=== PATIENT | male | born 2000 | race Two or more races ===

== ENCOUNTER 2023-07-21 13:19 | Inpatient (IN) | payer OTHER ==
[~2023-07-21] VITALS: Ht 152.4 cm; Wt 47.6 kg
[2023-07-21] MEDS ORDERED: XARELTO10 MG PO (14:18)
[2023-07-21] MEDS ORDERED: IRON236 MG PO (14:18)
[2023-07-21] MEDS ORDERED: FOLIC ACID20 MG PO (14:18)
[2023-07-21 18:26] LABS: HEMOGLOBIN 10.5 g/dL (13-16.00); MEAN CELL VOLUME 87.9 fL (80.0-100.00); MEAN CORPUSCULAR HEMOGLOBIN 31.8 pg (27.00-32.0); MEAN CORPUSCULAR HGB CONC 36.2 g/dl (32.0-36.0); PLATELET COUNT 448 K/uL (150-450); RED CELL DISTRIBUTION WIDTH 15.9 % (11.5-14.5)
[2023-07-21 18:46] LABS: ALBUMIN 2.6 gm/dL (3.4-5.0); BILIRUBIN TOTAL 0.34 mg/dL (0.3-1.2); CALCIUM 8.7 mg/dL (8.5-10.1); CREATININE SERUM 0.31 mg/dL (0.70-1.30); GFR 360.99; POTASSIUM 4.29 mEq/L (3.5-5.1); TOTAL PROTEIN 6.6 gm/dL (6.4-8.2)
[2023-07-21 21:47] LABS: URINE APPEARANCE Turbid; URINE BILIRRUBIN Negative (NEGATIVE); URINE BLOOD Small; URINE COLOR Dark Yellow; URINE GLUCOSE Negative (NEGATIVE); URINE LEUKOCYTE Large; URINE NITRATE Positive
[2023-07-21 21:51] LABS: URINE EPITHELIAL CELLS 21.7 uL (0.0-38.8); URINE RBC 34.9 uL (0.0-20.8)
[2023-07-21 22:05] LABS: URINE BACTERIA > 9821.5 uL (0.0-1933); URINE PROTEIN 100 (NEGATIVE); URINE WBC > 5548.3 uL (0.0-23.2)
[2023-07-22 02:05] LABS: INR 1.04; PARTIAL THROMBOPLASTIN TIME 30.2 SECONDS (22.0-34.0); PROTHROMBIN TIME 10.9 SECONDS (9.0-11.5)
[2023-07-22 09:43] LABS: CALCIUM 7.9 mg/dL (8.5-10.1); POTASSIUM 4.48 mEq/L (3.5-5.1)
[2023-07-22 09:44] LABS: PROCALCITONIN 0.09 ng/ml (0.020-0.080)
[2023-07-22 10:21] LABS: CREATININE SERUM 0.18 mg/dL (0.70-1.30); GFR 676.01
[2023-07-22 10:42] LABS: CORTISOL 14.88 ug/dl
[2023-07-22 15:41] LABS: POTASSIUM 4.28 mEq/L (3.5-5.1)
[2023-07-22 15:49] LABS: GFR 774.39
[2023-07-22 16:37] LABS: CREATININE SERUM 0.16 mg/dL (0.70-1.30)
[2023-07-23 08:31] LABS: PHOSPHOROUS 5.4 mg/dL (2.5-4.9)
[2023-07-23 08:32] LABS: ALBUMIN 1.9 gm/dL (3.4-5.0); PHOSPHOROUS 5.4 mg/dL (2.5-4.9); POTASSIUM 3.92 mEq/L (3.5-5.1)
[2023-07-23 08:38] LABS: GFR 834.27
[2023-07-23 08:39] LABS: CREATININE SERUM 0.15 mg/dL (0.70-1.30)
[2023-07-24 08:23] LABS: ALBUMIN 2.1 gm/dL (3.4-5.0); BILIRUBIN TOTAL 0.26 mg/dL (0.3-1.2); CALCIUM 8.3 mg/dL (8.5-10.1); CREATININE SERUM 0.19 mg/dL (0.70-1.30); GFR 635.11; GLOBULINA 3.4 G/DL (2.4-3.5); POTASSIUM 3.74 mEq/L (3.5-5.1); TOTAL PROTEIN 5.5 gm/dL (6.4-8.2)
[2023-07-25 06:14] LABS: HEMATOCRIT 24.3 % (39.0-48.0); MEAN CELL VOLUME 91.2 fL (80.0-100.00); MEAN CORPUSCULAR HEMOGLOBIN 33.3 pg (27.00-32.0); MEAN CORPUSCULAR HGB CONC 36.5 g/dl (32.0-36.0); PLATELET COUNT 415 K/uL (150-450); RED BLOOD COUNT 2.67 M/uL (4.00-6.00)
[2023-07-25 06:18] LABS: HEMOGLOBIN 8.9 g/dL (13-16.00)
[2023-07-25 06:32] LABS: INR 1.08; PARTIAL THROMBOPLASTIN TIME 28.4 SECONDS (22.0-34.0); PROTHROMBIN TIME 11.3 SECONDS (9.0-11.5)
[2023-07-25 07:03] LABS: ALBUMIN 2.2 gm/dL (3.4-5.0); ALKALINE PHOSPHATASE 65 U/L (50-136); ALT/SGPT 26 U/L (12-78); ANION GAP 12 (10.0-20.0); AST/SGOT 20 U/L (15-37); BILIRUBIN TOTAL 0.35 mg/dL (0.3-1.2); BILIRUBIN,CONJUGATED < 0.10 mg/dL (0.0-0.2); BILIRUBIN,UNCONJUGATED 0.25 mg/dL (0.0-0.6); BLOOD UREA NITROGEN 13 mg/dL (7-18); BUN CREA RATIO 52 (7.0-25.0); CALCIUM 8.6 mg/dL (8.5-10.1); CARBON DIOXIDE 25 mEq/L (21-32); CHLORIDE 101 mmol/L (98-107); CHOL HDL RATIO 3.4 (0-5.0); CHOLESTEROL 120 mg/dL (0-200); GLOBULINA 3.6 G/DL (2.4-3.5); GLUCOSE FASTING 82 mg/dL (65-100); HDL 35 mg/dl (40-60); LDL 61 mg/dl (0-130); OSMOLALITY SERUM 267 MOSM/KG (275-295); PHOSPHOROUS 4.8 mg/dL (2.5-4.9); POTASSIUM 4.26 mEq/L (3.5-5.1); SODIUM 134 mmol/L (136-145); TOTAL PROTEIN 5.8 gm/dL (6.4-8.2); TRIGLYCERIDES 118 mg/dL (0-150); VLDL 23 (0-39)
[2023-07-25 07:15] LABS: CREATININE SERUM 0.25 mg/dL (0.70-1.30)
[2023-07-25 10:05] LABS: UREA CLEARANCE 30.8 ML/MIN
[2023-07-29 07:06] LABS: ALBUMIN 2.7 gm/dL (3.4-5.0); BILIRUBIN TOTAL 0.43 mg/dL (0.3-1.2); CALCIUM 9.1 mg/dL (8.5-10.1); GLOBULINA 3.9 G/DL (2.4-3.5); POTASSIUM 4.85 mEq/L (3.5-5.1); TOTAL PROTEIN 6.6 gm/dL (6.4-8.2)
[2023-07-29 07:38] LABS: CREATININE SERUM 0.21 mg/dL (0.70-1.30); GFR 565.81
[2023-07-30 08:41] LABS: ALBUMIN 2.6 gm/dL (3.4-5.0); BILIRUBIN TOTAL 0.5 mg/dL (0.3-1.2); CALCIUM 8.9 mg/dL (8.5-10.1); POTASSIUM 4.17 mEq/L (3.5-5.1); TOTAL PROTEIN 6.6 gm/dL (6.4-8.2)
[2023-07-30 12:44] LABS: GFR 635.11
[2023-07-30 12:55] LABS: CREATININE SERUM 0.19 mg/dL (0.70-1.30)
[2023-07-31 07:25] LABS: CALCIUM 8.4 mg/dL (8.5-10.1); POTASSIUM 4.81 mEq/L (3.5-5.1)
[2023-07-31 07:39] LABS: HEMATOCRIT 24.4 % (39.0-48.0); MEAN CELL VOLUME 91.4 fL (80.0-100.00); MEAN CORPUSCULAR HGB CONC 35.8 g/dl (32.0-36.0); PLATELET COUNT 355 K/uL (150-450); RED BLOOD COUNT 2.67 M/uL (4.00-6.00); RED CELL DISTRIBUTION WIDTH 16.7 % (11.5-14.5)
[2023-07-31 07:54] LABS: HEMOGLOBIN 8.7 g/dL (13-16.00); MEAN CORPUSCULAR HEMOGLOBIN 32.5 pg (27.00-32.0)
[2023-07-31 08:45] LABS: CREATININE SERUM 0.23 mg/dL (0.70-1.30); GFR 509.45
[2023-08-01 07:13] LABS: HEMATOCRIT 26.6 % (39.0-48.0); HEMOGLOBIN 9.4 g/dL (13-16.00); MEAN CELL VOLUME 91.3 fL (80.0-100.00); MEAN CORPUSCULAR HEMOGLOBIN 32.4 pg (27.00-32.0); MEAN CORPUSCULAR HGB CONC 35.5 g/dl (32.0-36.0); PLATELET COUNT 309 K/uL (150-450); RED BLOOD COUNT 2.91 M/uL (4.00-6.00); RED CELL DISTRIBUTION WIDTH 16.4 % (11.5-14.5)
[2023-08-01 07:35] LABS: INR 1.04; PARTIAL THROMBOPLASTIN TIME 33.1 SECONDS (22.0-34.0); PROTHROMBIN TIME 10.9 SECONDS (9.0-11.5)
[2023-08-01 07:42] LABS: ALBUMIN 2.4 gm/dL (3.4-5.0); BILIRUBIN TOTAL 0.53 mg/dL (0.3-1.2); CALCIUM 8.4 mg/dL (8.5-10.1); GLOBULINA 3.6 G/DL (2.4-3.5); POTASSIUM 4.3 mEq/L (3.5-5.1)
[2023-08-01 08:01] LABS: ALBUMIN 2.5 gm/dL (3.4-5.0); BILIRUBIN TOTAL 0.52 mg/dL (0.3-1.2); BILIRUBIN,CONJUGATED 0.13 mg/dL (0.0-0.2); BILIRUBIN,UNCONJUGATED 0.39 mg/dL (0.0-0.6); CHOL HDL RATIO 2.8 (0-5.0); MAGNESIUM 1.9 mg/dL (1.8-2.4)
[2023-08-01 08:12] LABS: CREATININE SERUM 0.18 mg/dL (0.70-1.30); GFR 676.01
[2023-08-02 07:50] LABS: ALBUMIN 2.3 gm/dL (3.4-5.0); BILIRUBIN TOTAL 0.38 mg/dL (0.3-1.2); CALCIUM 8.3 mg/dL (8.5-10.1); GLOBULINA 3.6 G/DL (2.4-3.5); POTASSIUM 4.41 mEq/L (3.5-5.1); TOTAL PROTEIN 5.9 gm/dL (6.4-8.2)
[2023-08-02 08:15] LABS: GFR 722.08
[2023-08-02 08:16] LABS: CREATININE SERUM 0.17 mg/dL (0.70-1.30)
[2023-08-03 06:56] LABS: ALBUMIN 2.2 gm/dL (3.4-5.0); ALKALINE PHOSPHATASE 61 U/L (50-136); ALT/SGPT 42 U/L (12-78); AST/SGOT 33 U/L (15-37); BILIRUBIN TOTAL 0.34 mg/dL (0.3-1.2); BLOOD UREA NITROGEN 13 mg/dL (7-18); CARBON DIOXIDE 23 mEq/L (21-32); CHLORIDE 87 mmol/L (98-107); GLOBULINA 3.2 G/DL (2.4-3.5); GLUCOSE FASTING 86 mg/dL (65-100); POTASSIUM 4.38 mEq/L (3.5-5.1); TOTAL PROTEIN 5.4 gm/dL (6.4-8.2)
[2023-08-03 08:13] LABS: ANION GAP 12 (10.0-20.0); BUN CREA RATIO 86 (7.0-25.0); GFR 834.34; OSMOLALITY SERUM 238 MOSM/KG (275-295)
[2023-08-03 08:14] LABS: CREATININE SERUM < 0.15 mg/dL (0.70-1.30); SODIUM 118 mmol/L (136-145); URIC ACID 0.6 mg/dL (3.5-8.5)
[2023-08-03 20:06] LABS: ALBUMIN 2.2 gm/dL (3.4-5.0); ALKALINE PHOSPHATASE 63 U/L (50-136); ALT/SGPT 40 U/L (12-78); ANION GAP 13 (10.0-20.0); AST/SGOT 30 U/L (15-37); BILIRUBIN TOTAL 0.23 mg/dL (0.3-1.2); BLOOD UREA NITROGEN 13 mg/dL (7-18); CARBON DIOXIDE 23 mEq/L (21-32); CHLORIDE 91 mmol/L (98-107); GLOBULINA 3.1 G/DL (2.4-3.5); GLUCOSE FASTING 97 mg/dL (65-100); OSMOLALITY SERUM 248 MOSM/KG (275-295); POTASSIUM 4.21 mEq/L (3.5-5.1); TOTAL PROTEIN 5.3 gm/dL (6.4-8.2)
[2023-08-03 20:16] LABS: BUN CREA RATIO 86 (7.0-25.0); GFR 834.34
[2023-08-03 20:17] LABS: SODIUM 123 mmol/L (136-145)
[2023-08-03 20:37] LABS: CREATININE SERUM < 0.15 mg/dL (0.70-1.30)
[2023-08-04 12:39] LABS: ALBUMIN 2.3 gm/dL (3.4-5.0); BILIRUBIN TOTAL 0.24 mg/dL (0.3-1.2); CALCIUM 8.3 mg/dL (8.5-10.1); GLOBULINA 3.4 G/DL (2.4-3.5); POTASSIUM 4.3 mEq/L (3.5-5.1); TOTAL PROTEIN 5.7 gm/dL (6.4-8.2)
[2023-08-04 13:09] LABS: CREATININE SERUM 0.15 mg/dL (0.70-1.30); GFR 834.27
[2023-08-05 07:19] LABS: ALBUMIN 2.3 gm/dL (3.4-5.0); BILIRUBIN TOTAL 0.3 mg/dL (0.3-1.2); CALCIUM 8.6 mg/dL (8.5-10.1); GLOBULINA 3.6 G/DL (2.4-3.5); POTASSIUM 4.9 mEq/L (3.5-5.1); TOTAL PROTEIN 5.9 gm/dL (6.4-8.2)
[2023-08-05 07:56] LABS: CREATININE SERUM 0.15 mg/dL (0.70-1.30); GFR 834.27
[2023-08-05 21:06] LABS: CALCIUM 8.4 mg/dL (8.5-10.1); GFR 635.11; POTASSIUM 4.22 mEq/L (3.5-5.1)
[2023-08-05 21:08] LABS: CREATININE SERUM 0.19 mg/dL (0.70-1.30)
[2023-08-06 07:29] LABS: CALCIUM 8.5 mg/dL (8.5-10.1); GFR 774.39; POTASSIUM 4.13 mEq/L (3.5-5.1)
[2023-08-06 07:39] LABS: CREATININE SERUM 0.16 mg/dL (0.70-1.30)
[2023-08-08 08:42] LABS: ALBUMIN 2.2 gm/dL (3.4-5.0); ANION GAP 12 (10.0-20.0); BLOOD UREA NITROGEN 3 mg/dL (7-18); CALCIUM 8.7 mg/dL (8.5-10.1); CARBON DIOXIDE 25 mEq/L (21-32); CHLORIDE 103 mmol/L (98-107); GLUCOSE FASTING 75 mg/dL (65-100); OSMOLALITY SERUM 267 MOSM/KG (275-295); PHOSPHOROUS 5.2 mg/dL (2.5-4.9); POTASSIUM 4.19 mEq/L (3.5-5.1); SODIUM 136 mmol/L (136-145)
[2023-08-08 08:47] LABS: BUN CREA RATIO 20 (7.0-25.0); CREATININE SERUM < 0.15 mg/dL (0.70-1.30); GFR 834.34
== END 2023-08-09 18:11 | disposition home or self-care (01) | DRG 389 ==
LOC: ER 13:20 → MEDJ 07-22 00:41
PROVIDERS: General Practice; Internal Medicine; Internal Medicine Nephrology; Nurse Practitioner Family; ADMIT Internal Medicine; ATTEND Internal Medicine
PROC: B24BZZZ Ultrasonography of Heart with Aorta (ICD-10-PCS; principal; 2023-07-22)
PROC: 4A12X4Z Monitoring of Cardiac Electrical Activity, External Approach (ICD-10-PCS; 2023-07-22)
DX: K56.0 Paralytic ileus (principal); E87.1 Hypo-osmolality and hyponatremia; N39.0 Urinary tract infection, site not specified; F84.0 Autistic disorder; G61.0 Guillain-Barre syndrome; J90 Pleural effusion, not elsewhere classified; G80.9 Cerebral palsy, unspecified; Z74.01 Bed confinement status; F79 Unspecified intellectual disabilities; B96.5 Pseudomonas (aeruginosa) (mallei) (pseudomallei) as the cause of diseases classified elsewhere